=== PATIENT | female | born 1985 | race African-American/Black ===

== ENCOUNTER 2018-06-10 16:55 | Outpatient (CLI) | payer OTHER | END 2018-06-10 20:50 | disposition home or self-care (01) | LOC: OBT 16:55 → L-D 16:56 → OBT 20:50 | DX: O62.9 Abnormality of forces of labor, unspecified (principal); Z3A.37 37 weeks gestation of pregnancy | CPT/HCPCS: 76818 ==

== ENCOUNTER 2018-06-12 11:22 | Inpatient (IN) | payer OTHER ==
[2018-06-12 16:05] LABS: RUPTURE FETAL MEMBRANES NEGATIVE (NEGATIVE)
== END 2018-06-13 10:00 | disposition home or self-care (01) | DRG 833 ==
LOC: OBT 11:22 → L-D 11:23 → OBT 14:25 → PP1 14:25
PROVIDERS: Obstetrics & Gynecology
DX: O47.1 False labor at or after 37 completed weeks of gestation (principal); Z3A.37 37 weeks gestation of pregnancy
CPT/HCPCS: 76818; 84112

== ENCOUNTER 2018-06-19 23:55 | Outpatient (CLI) | payer OTHER | END 2018-06-20 02:55 | disposition home or self-care (01) | LOC: OBT 23:55 → L-D 23:55 → OBT 06-20 02:55 | DX: O62.9 Abnormality of forces of labor, unspecified (principal); Z3A.38 38 weeks gestation of pregnancy | CPT/HCPCS: 76818 ==

== ENCOUNTER 2018-06-22 06:45 | Inpatient (IN) | payer OTHER ==
[2018-06-22] MEDS ORDERED: METHYLERGONOVINE 0.2 MG INJ IM ×2 (08:00→20:30)
[2018-06-22] MEDS ORDERED: LIDOCAINE 1% (MPF) 30 ML INJ INJ (08:00)
[2018-06-22] MEDS ORDERED: BUTORPHANOL 2 MG INJ IV (08:00)
[2018-06-22] MEDS ORDERED: MISOPROSTOL 200 MCG TAB PR ×2 (08:00→20:30)
[2018-06-22] MEDS ORDERED: OXYCODONE/ASPIRIN (4.88/325) TAB PO (08:00)
[2018-06-22] MEDS ORDERED: IBUPROFEN 600 MG TAB PO (08:00)
[2018-06-22] MEDS ORDERED: OXYTOCIN 30 UNITS/LR 500 ML IV ×3 (08:00→20:30)
[2018-06-22] MEDS ORDERED: CARBOPROST 250 MCG INJ IM ×2 (08:00→20:30)
[2018-06-22 08:06] LABS: ADD MAN DIFF? NO
[2018-06-22 08:09] LABS: WHITE BLOOD COUNT 9.1 10^3/ul (4.8-10.8)
[2018-06-22 08:09] LABS: BASOPHILS % 0.3 % (0.0-2.0); EOSINOPHILS # 0.6 10^3/ul (0.0-0.5); HEMATOCRIT 32.7 % (37.0-47.0); HEMOGLOBIN 10.6 g/dl (12.0-16.0); LYMPHOCYTES # 1.1 10^3/ul (0.8-2.9); LYMPHOCYTES % 11.7 % (15.0-51.0); MEAN CORPUSCULAR HEMOGLOBIN 25.5 pg (29.0-33.0); MEAN CORPUSCULAR HGB CONC 32.4 g/dl (32.0-37.0); MEAN CORPUSCULAR VOLUME 78.8 fl (82.0-101.0); MEAN PLATELET VOLUME 9.4 fl (7.4-10.4); MONOCYTE # 0.6 10^3/ul (0.3-0.9); MONOCYTES % 6.6 % (0.0-11.0); NEUTROPHIL # 6.8 10^3/ul (1.6-7.5); NEUTROPHILS % 74.3 % (39.0-77.0); PLATELET COUNT 281 10^3/UL (140-415); RED BLOOD COUNT 4.15 10^6/ul (4.20-5.40); RED CELL DISTRIBUTION WIDTH 14.8 % (11.5-14.5)
[2018-06-22 08:19] LABS: INR 0.88; PT RATIO 0.9
[2018-06-22 08:20] LABS: PARTIAL THROMBOPLASTIN TIME 25.5 Sec (23.0-35.0)
[2018-06-22] MEDS: LACTATED RINGER'S 1,000 ML IV ×2 (08:30→15:03)
[2018-06-22] MEDS ORDERED: CLINDAMYCIN 900 MG/D5W (PMX) 50 ML IVPB (08:34)
[2018-06-22] MEDS: CLINDAMYCIN 900 MG/D5W (PMX) 50 ML IVPB ×2 (08:43→17:08)
[2018-06-22 08:45] LABS: HEPATITIS B SURFACE ANTIGEN NEGATIVE (NEGATIVE)
[2018-06-22] MEDS: OXYTOCIN 30 UNITS/LR 500 ML IV ×3 (08:48→23:26)
[2018-06-22] MEDS ORDERED: FENTAnyl 2MCG/ML-ROPIV 0.2% 100 ML (15:31)
[2018-06-22 15:39] LABS: RAPID PLASMA REAGIN NONREACTIVE (NR)
[2018-06-22] MEDS ORDERED: FENTAnyl 2MCG/ML-ROPIV 0.2% 100 ML BAG EPI (16:30)
[2018-06-22] MEDS ORDERED: NALOXONE (0.4 MG/ML) INJ IV (16:30)
[2018-06-22] MEDS: ONDANSETRON 4 MG INJ IV (17:08)
[2018-06-22] MEDS ORDERED: ACETAMINOPHEN 325 MG TAB PO (20:30)
[2018-06-22] MEDS ORDERED: WITCH HAZEL/GLYCERIN PAD PR (20:30)
[2018-06-22] MEDS ORDERED: DIPHENHYDRAMINE 25 MG CAP PO (20:30)
[2018-06-22] MEDS ORDERED: HYDROCODONE/APAP (5/325) TAB PO ×2 (20:30)
[2018-06-22] MEDS ORDERED: NACL 0.9% 3 ML SYG IV (20:30)
[2018-06-22] MEDS ORDERED: ZOLPIDEM 5 MG TAB PO (20:30)
[2018-06-22] MEDS: IBUPROFEN 600 MG TAB PO (23:35)
[2018-06-23] MEDS: IBUPROFEN 600 MG TAB PO ×3 (06:08→18:17)
[2018-06-23 20:56] LABS: ADD MAN DIFF? NO
[2018-06-23 20:57] LABS: BASOPHILS % 0.3 % (0.0-2.0); EOSINOPHILS # 0.5 10^3/ul (0.0-0.5); EOSINOPHILS % 4.7 % (0.0-7.0); HEMATOCRIT 32.3 % (37.0-47.0); HEMOGLOBIN 10.5 g/dl (12.0-16.0); LYMPHOCYTES # 1.7 10^3/ul (0.8-2.9); LYMPHOCYTES % 16.7 % (15.0-51.0); MEAN CORPUSCULAR HEMOGLOBIN 25.9 pg (29.0-33.0); MEAN CORPUSCULAR HGB CONC 32.5 g/dl (32.0-37.0); MEAN CORPUSCULAR VOLUME 79.6 fl (82.0-101.0); MEAN PLATELET VOLUME 9.4 fl (7.4-10.4); MONOCYTE # 0.7 10^3/ul (0.3-0.9); MONOCYTES % 6.4 % (0.0-11.0); NEUTROPHIL # 7.3 10^3/ul (1.6-7.5); PLATELET COUNT 280 10^3/UL (140-415); RED BLOOD COUNT 4.06 10^6/ul (4.20-5.40); RED CELL DISTRIBUTION WIDTH 14.8 % (11.5-14.5)
[2018-06-23 20:57] LABS: WHITE BLOOD COUNT 10.3 10^3/ul (4.8-10.8)
[2018-06-24] MEDS: IBUPROFEN 600 MG TAB PO ×3 (06:00→12:00)
== END 2018-06-24 12:35 | disposition home or self-care (01) | DRG 807 ==
LOC: L-D 06:45 → PP1 21:47
PROVIDERS: Obstetrics & Gynecology
PROC: 10E0XZZ Delivery of Products of Conception, External Approach (ICD-10-PCS; principal; 2018-06-22 06:00)
PROC: 10907ZC Drainage of Amniotic Fluid, Therapeutic from Products of Conception, Via Natural or Artificial Opening (ICD-10-PCS; 2018-06-22 06:00)
DX: O99.824 Streptococcus B carrier state complicating childbirth (principal); Z37.0 Single live birth; Z3A.39 39 weeks gestation of pregnancy
CPT/HCPCS: 62322; 85025; 85610; 85730; 86592; 86850; 86900; 86901; 87340